=== PATIENT | female | born 1950 | race Caucasian/White ===

== ENCOUNTER 2016-10-05 07:06 | Day surgery (SDC) | payer BC ==
[~2016-10-05 07:06] MED LIST: Lactated Ringers 1,000 ML IV SCH; Lidocaine 1%/Sod Bicarbonate in NS 8.4% 1 ML Syringe IV PRN; Sodium Chloride 0.9% 10 ML Syringe FLUSH PRN
[2016-10-05] MEDS ORDERED: fentaNYL 100 MCG/2 ML SDV ONE (07:13)
[2016-10-05] MEDS ORDERED: Propofol 200 MG/20 ML SDV ONE (07:13)
[2016-10-05] MEDS ORDERED: Midazolam 1 MG/ML 2 ML SDV ONE (07:14)
[2016-10-05] MEDS ORDERED: Lidocaine 1% 4 ML ONE (07:14)
--- NOTE | 2016-10-05 07:35 | PCM.PREANE ---
Preanesthetic Assessment - Physical Assessment Height: 1.7 m Weight: 72.121 kg - Allergies Allergies/Adverse Reactions: Allergies Allergy/AdvReac Type Severity Reaction Status Date / Time No Known Allergies Allergy Verified 12/15/14 11:44 PreAnesthesia Questionnaire Cardiovascular History: Reports: High cholesterol, Hypertension Respiratory History: Reports: Asthma, Other (see below) Other Respiratory History: asthma as a child Neurological History: Reports: Migraines Psychiatric History: Reports: Anxiety, Depression Endocrine/Metabolic History: Reports: Hypothyroidism Oncologic (Cancer) History: Reports: Other (see below) Other Oncologic History: malignant neoplasm of breast - Past Surgical History GI Surgical History: Reports: Colonoscopy Female Surgical History: Reports: section, Lithotripsy/ESWL Musculoskeletal Surgical History: Reports: Other (see below) Other Musculoskeletal Surgeries/Procedures:: removal bunion left foot, foot surgery - SUBSTANCE USE Smoking Status *Q: Former Smoker Second Hand Smoke Exposure: No Days Per Week of Alcohol Use: 0 Recreational Drug Use History: No - HOME MEDS Home Medications: Home Meds FLUoxetine [PROzac] 40 mg PO DAILY 12/15/14 [History] Lactobacillus Combo No.11 [Probiotic] 1 tab PO DAILY 12/15/14 [History] Levothyroxine [Synthroid] 50 mcg PO DAILY 12/15/14 [History] Losartan [Cozaar] 100 mg PO DAILY 12/15/14 [History] - CURRENT (IN HOUSE) MEDS Current Meds: Current Medications Lactated Ringer's (Ringers, Lactated) 1,000 mls @ 125 mls/hr IV ASDIRECTED JARVIS Stop: 10/05/16 23:00 Lidocaine/Sodium Bicarbonate (Buffered Lidocaine 1% In Ns 8.4%) 0.25 ml IV ONETIME PRN PRN Reason: Prior to IV Start Stop: 10/05/16 18:00 Sodium Chloride (Saline Flush) 10 ml FLUSH ASDIRECTED PRN PRN Reason: Keep Vein Open Stop: 10/05/16 18:00 Discontinued Medications Fentanyl (Sublimaze) Confirm Administered Dose 100 mcg .ROUTE .STK-MED ONE Stop: 10/05/16 07:14 Lidocaine HCl (Xylocaine-Mpf 1%) Confirm Administered Dose 4 mls @ as directed .ROUTE .STK-MED ONE Stop: 10/05/16 07:15 Midazolam HCl (Versed 1 Mg/Ml) Confirm Administered Dose 2 mg .ROUTE .STK-MED ONE Stop: 10/05/16 07:15 Propofol (Diprivan 20 Ml) Confirm Administered Dose 200 mg .ROUTE .STK-MED ONE Stop: 10/05/16 07:14 Preanesthetic Assessment - ANESTHESIA/TRANSFUSION/FAMILY HX Anesthesia/Transfusion History: No Prior Transfusion(s), Prior Anesthesia (no problems ) Type of Anesthesia Reaction: Reports: Unknown Family History of Anesthesia Reaction: No Intubation History: Unknown Type of Transfusion Reactions: Reports: Unknown - REVIEW OF SYSTEMS Constitutional: Reports: no symptoms CONSULTING PSYCHIATRIST: Reports: no symptoms (HX of migraines) Respiratory: Reports: no symptoms Cardiovascular: Reports: blood pressure problem (controlled wit medications ) GI: Reports: no symptoms Other: Reports: None, Thyroid Problems (hypothyroidism controlled with medications ), Depression, Anxiety - PHYSICAL ASSESSMENT HR: 69 O2 Sat by Pulse Oximetry: 95 RR: 16 BP: 136/88 Temp: 36.9 C Height: 1.7 m Weight: 72.121 kg NPO Status Date: 10/05/16 NPO Status Time: 00:00 ASA Class: 2 Mental Status: Alert & Oriented x3 Airway Class: Mallampati = 1 Dentition: Reports: Normal Dentition ROM/Head Extension: Limited/Partial (has neck pain) Respiratory Status: lungs clear to auscultation bilaterally Cardiovascular Status: regular rate & rhythm, normal S1, S2, no murmur, blood pressure WNL - ALLERGIES Allergies/Adverse Reactions: Allergies Allergy/AdvReac Type Severity Reaction Status Date / Time No Known Allergies Allergy Verified 12/15/14 11:44 - BLOOD Blood Available: No Product(s) Available: None - ANESTHESIA PLAN Preop Beta Roberta: No Anesthesia Type Planned: MAC - ACKNOWLEDGEMENTS Pt an Appropriate Candidate for the Planned Anesthesia: No Alternatives and Risks of Anesthesia Discussed w Pt/Guardian: No Pt/Guardian Understands and Agrees with Anesthesia Plan: No
--- NOTE | 2016-10-05 08:39 | PCM.OPNOTE ---
- General Post-Op/Procedure Note Date of Surgery/Procedure: 10/05/16 Operative Procedure(s): COLONOSCOPY WITH POLYPECTOMY Pre Op Diagnosis: SCREENING COLONOSOCOPY Post-Op Diagnosis: Same Anesthesia Technique: MAC Primary Surgeon: Julio Medina EBL in mLs: 0 Complications: None Condition: Good
--- NOTE | 2016-10-05 08:45 | PCM48HPAN ---
Post Anesthesia Note - EVALUATION WITHIN 48HRS OF ANESTHETIC Vital Signs in Normal Range: Yes Patient Participated in Evaluation: Yes Respiratory Function Stable: Yes Airway Patent: Yes Cardiovascular Function Stable: Yes Hydration Status Stable: Yes Pain Control Satisfactory: Yes Nausea and Vomiting Control Satisfactory: Yes Mental Status Recovered: Yes
[2016-10-05 08:48] VITALS: BP 132/72
--- NOTE | 2016-10-05 14:05 | OR ---
DATE OF OPERATION: 10/05/2016 SURGEON: Julio Medina MD PREOPERATIVE DIAGNOSIS: Screening colonoscopy. POSTOPERATIVE DIAGNOSIS: Screening colonoscopy. OPERATION PERFORMED: Colonoscopy to cecum with polypectomy. FINDINGS: A subcentimeter polyp in the cecum which was completely removed and retrieved by cautery snare. There was occasional diverticulosis and sigmoid. There is no angiodysplasias, large tumor masses, ulcerations, or hemorrhoids. DESCRIPTION OF PROCEDURE: The patient was taken to the operating room, where the endoscopy room, placed in a supine position, connected monitoring equipment. The patient was given IV sedation and placed in left lateral position. Perianal area showed some hemorrhoidal tags. Rectal exam showed good sphincter tone. A video Olympus colonoscope was introduced into the rectum and threaded up without problem to the cecum, where the appendicular orifice and ileocecal valve was noted. Colonic prep was excellent throughout the colon and [place] [facility] score grade A. A polyp was noted in the cecum as described above. This was lassoed with cautery snare and removed and retrieved. The scope was then slowly withdrawn showing the cecum, ascending colon, transverse colon, descending colon, sigmoid colon, and rectum. Retroflexed view was done. Specimen was sent to Pathology in a labeled container. The patient tolerated the procedure, sent to recovery room in a stable condition. She will be followed up in the clinic. ANESTHESIA: ESTIMATED BLOOD LOSS: MMODAL /[id number]
== END 2016-10-05 09:27 | disposition home or self-care (01) ==
LOC: JD.SDS 07:06
PROVIDERS: ATTEND Surgery
DX: Z12.11 Encounter for screening for malignant neoplasm of colon (principal); K57.30 Diverticulosis of large intestine without perforation or abscess without bleeding; F41.9 Anxiety disorder, unspecified; F32.9 Major depressive disorder, single episode, unspecified; I10 Essential (primary) hypertension; E03.9 Hypothyroidism, unspecified; Z98.890 Other specified postprocedural states; Z79.899 Other long term (current) drug therapy; Z87.891 Personal history of nicotine dependence
CPT/HCPCS: 45385; J2250; J3010; J7120; 00810; J2704

== ENCOUNTER 2021-08-11 17:41 | Emergency (ER) | payer MEDICARE, BC ==
[2021-08-11] MEDS ORDERED: Lidocaine 1% 10 ML MDV INJECT ONE (20:27)
[2021-08-11] MEDS ORDERED: Acetaminophen 325 MG Tab PO ONE (21:10)
[2021-08-11 22:55] VITALS: BP 124/86; PULSE 85
== END 2021-08-11 21:55 | disposition home or self-care (01) ==
LOC: JD.ED 17:41
DX: S61.211A Laceration without foreign body of left index finger without damage to nail, initial encounter (principal); E78.00 Pure hypercholesterolemia, unspecified; I10 Essential (primary) hypertension; E03.9 Hypothyroidism, unspecified; Z79.899 Other long term (current) drug therapy; W26.8XXA Contact with other sharp object(s), not elsewhere classified, initial encounter
CPT/HCPCS: 12001; 73140; 99283; A9270; 12011; 99282

== ENCOUNTER 2021-10-30 08:32 | Day surgery (SDC) | payer MEDICARE, BC ==
[~2021-10-30 08:32] MED LIST changes: +Lidocaine 1%/Sod Bicarbonate in NS 8.4% 1 ML Syringe IDERM PRN; -Lidocaine 1%/Sod Bicarbonate in NS 8.4% 1 ML Syringe IV PRN; +Sodium Chloride 0.9% 10 ML Syringe FLUSH SCH
[2021-10-30] MEDS ORDERED: Propofol 200 MG/20 ML SDV ONE ×3 (09:44→10:21)
[2021-10-30] MEDS ORDERED: Lidocaine 1% 4 ML ONE (09:44)
[2021-10-30] MEDS ORDERED: fentaNYL 100 MCG/2 ML SDV ONE (10:17)
[2021-10-30 13:54] VITALS: BP 119/74; PULSE 60
== END 2021-10-30 11:34 | disposition home or self-care (01) ==
LOC: JD.SDS 08:32
PROVIDERS: ATTEND Surgery
DX: Z12.11 Encounter for screening for malignant neoplasm of colon (principal); K57.30 Diverticulosis of large intestine without perforation or abscess without bleeding; K64.4 Residual hemorrhoidal skin tags; F41.9 Anxiety disorder, unspecified; E78.00 Pure hypercholesterolemia, unspecified; I10 Essential (primary) hypertension; H91.90 Unspecified hearing loss, unspecified ear; F32.A Depression, unspecified; E03.9 Hypothyroidism, unspecified; J45.909 Unspecified asthma, uncomplicated; E55.9 Vitamin D deficiency, unspecified; Z79.899 Other long term (current) drug therapy; Z87.891 Personal history of nicotine dependence; Z98.890 Other specified postprocedural states; Z85.038 Personal history of other malignant neoplasm of large intestine; Z79.890 Hormone replacement therapy
CPT/HCPCS: J2704; J3010; J7120